=== PATIENT | male | born 1995 ===

== ENCOUNTER 2023-12-14 08:53 | Outpatient (AMB) | payer OTHER, SELFPAY ==
[2023-12-14 08:54] VITALS: BP 128/84; PULSE 66; TEMP 37; O2SAT 98; BMI 24.1
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
== END 2023-12-14 09:57 | disposition home or self-care (01) ==
PROVIDERS: Visit Provider Physician Assistant
DX: M62.838 Other muscle spasm (principal); S16.1XXA Strain of muscle, fascia and tendon at neck level, initial encounter; S39.012A Strain of muscle, fascia and tendon of lower back, initial encounter; V89.2XXA Person injured in unspecified motor-vehicle accident, traffic, initial encounter; S06.0XAA Concussion with loss of consciousness status unknown, initial encounter
CPT/HCPCS: 99203